=== PATIENT | male | born 1990 | race Caucasian/White ===

== ENCOUNTER 2020-05-26 22:21 | Emergency (ER) | payer OTHER ==
[2020-05-26 22:53] VITALS: BP 126/77
--- NOTE | 2020-05-27 00:07 | ED Physician Documentation ---
History of Present Illness - Stated complaint Stated Complaint: RT KNEE/LEG PX - Chief complaint Chief Complaint: Trauma Ext - History obtained from History obtained from: Patient - Additonal information Additional information: 30-year-old man, previously healthy presents with right knee pain sudden in onset while out fishing with a friend. Patient stepped on the knee in an awkward way while on a floating dock and felt a popping sensation to the medial knee with sudden onset pain at that area, nonradiating, aching, constant, moderate to severe. He was able to weight-bear immediately and is able to weight-bear now. He does feel some instability in the knee. Denies sensory or motor issues. no swelling. Review of Systems Skin: reports: Other (no swelling, no abrasions) Musculoskeletal: reports: Joint pain Neurologic: denies: Focal weakness, Numbness PD PAST MEDICAL HISTORY - Past Medical History Past Medical History: No - Past Surgical History Past Surgical History: Yes Ortho: Other - Present Medications Home Medications: Ambulatory Orders Medication Instructions Recorded Confirmed No Known Home Medications 05/26/20 05/26/20 - Allergies Allergies/Adverse Reactions: Allergies Allergy/AdvReac Type Severity Reaction Status Date / Time No Known Drug Allergies Allergy Verified 05/26/20 23:13 - Social History Does the pt smoke?: No Smoking Status: Never smoker Does the pt drink ETOH?: Yes Does the pt have substance abuse?: No - Immunizations Immunizations are current?: Yes - POLST Patient has POLST: No PD ED PE NORMAL - Vitals Vital signs reviewed: Yes - General General: Alert and oriented X 3, No acute distress, Well developed/nourished - HEENT HEENT: Atraumatic, PERRL, EOMI - Extremities Extremities: No deformity, No tenderness to palpate, Normal ROM s pain, Other (tender with valgus stress. tender with varus stress. negative anterior drawer sign. ) - Neuro Neuro: Alert and oriented X 3, No motor deficit, No sensory deficit, Other (2+ BL DP/PT pulses) Results - Vitals Vitals: Vital Signs - 24 hr 05/26/20 22:49 Temperature 37.0 C Heart Rate 86 Respiratory 18 Rate Blood Pressure 126/77 O2 Saturation 97 Oxygen O2 Source Room air PD MEDICAL DECISION MAKING - ED course ED course: 30-year-old man presents with likely mild ligament strain to right knee. Conservative measures discussed. Strict return precautions given. Knee immobilizer placed. Patient will follow up with Ortho. Departure - Departure Disposition: 01 Home, Self Care Clinical Impression: Knee pain Condition: Good Instructions: ED RICE Follow-Up: Garret Greer MD [Provider Admit Priv/Credential] - Comments: You were seen in the emergency department for knee pain. Your x-ray was normal. You should wear the knee immobilizer until you follow-up with orthopedics in 1 week. Return to the emergency department if you have any worsening symptoms, numbness or weakness in the foot.
--- NOTE | 2020-05-27 07:12 | XRAY Report ---
PROCEDURE: Knee 2 View RT INDICATIONS: Right knee pop at noon, with pain TECHNIQUE: 2 views of the right knee(s) were acquired. COMPARISON: None. FINDINGS: Bones: No fractures or dislocations. No suspicious bony lesions. Soft tissues: No joint effusion. No suspicious soft tissue calcifications. IMPRESSION: No fracture or dislocation. No discrepancy with the preliminary interpretation. Reviewed by: Ade Pineda MD on 05/27/2020 7:11 AM PST Approved by: Ade Pineda MD on 05/27/2020 7:11 AM PST Station ID: [id number]
== END 2020-05-27 00:12 | disposition home or self-care (01) ==
LOC: ED 22:21
DX: M25.561 Pain in right knee (principal)
CPT/HCPCS: 99282; 99283

== ENCOUNTER 2021-03-28 11:10 | Emergency (ER) | payer OTHER ==
[2021-03-28 11:21] VITALS: BP 138/84
--- NOTE | 2021-03-28 11:29 | ED Physician Documentation ---
PD HPI URI - Stated complaint Stated Complaint: SINUS - Chief complaint Chief Complaint: Heent - History obtained from History obtained from: Patient - Additional information Additional information: He returned from [place] few nights ago and on return home developed nasal congestion, and some sore throat. He had body aches and a fever that night but those have gone away. He has been fully vaccinated against Covid with the second maternal may be in June. He was sent here by the for Covid testing. Review of Systems Constitutional: reports: Fever, Chills, Myalgias Nose: reports: Rhinorrhea / runny nose Throat: reports: Sore throat Respiratory: denies: Dyspnea, Cough PD PAST MEDICAL HISTORY - Past Surgical History Past Surgical History: Yes Ortho: Other - Present Medications Home Medications: Ambulatory Orders Medication Instructions Recorded Confirmed No Known Home Medications 05/26/20 03/28/21 - Allergies Allergies/Adverse Reactions: Allergies Allergy/AdvReac Type Severity Reaction Status Date / Time No Known Drug Allergies Allergy Verified 03/28/21 11:21 - Social History Does the pt smoke?: No Smoking Status: Never smoker Does the pt drink ETOH?: Yes Does the pt have substance abuse?: No - Immunizations Immunizations are current?: Yes - POLST Patient has POLST: No PD ED PE NORMAL - Vitals Vital signs reviewed: Yes - General General: Alert and oriented X 3, No acute distress - Neuro Neuro: Alert and oriented X 3, Normal speech - Psych Psych: Normal mood, Normal affect Results - Vitals Vitals: Vital Signs - 24 hr 03/28/21 11:18 Temperature 36.4 C L Heart Rate 80 Respiratory 16 Rate Blood Pressure 138/84 H O2 Saturation 98 Oxygen O2 Source Room air Departure - Departure Disposition: 01 Home, Self Care Clinical Impression: Viral URI Condition: Good Record reviewed to determine appropriate education?: Yes Instructions: ED Viral Syndrome Comments: You have a Covid test pending. You need to self quarantine until the result is done and negative. Do not leave your house. Do not get near anybody. The results should be done in 48 to 72 hours. We will call with a positive result, the fastest way to get a negative result for confirmation though is to go to the hospital website at [email or web address], click on the my [facility] tab and sign up for the patient portal. If any friends or family get sick and would like to have a Covid test done, but do not have signs or symptoms that would necessitate being hospitalized, there are multiple local options for Covid testing. [facility] keeps an updated list of testing and vaccination options at: [email or web address]. Forms: Activity restrictions
== END 2021-03-28 11:40 | disposition home or self-care (01) ==
LOC: ED 11:10
DX: U07.1 COVID-19 (principal); J06.9 Acute upper respiratory infection, unspecified
CPT/HCPCS: 99282; 99283

== ENCOUNTER 2021-05-03 16:43 | Emergency (ER) | payer OTHER ==
--- NOTE | 2021-05-03 18:22 | ED Physician Documentation ---
History of Present Illness - Stated complaint Stated Complaint: NUMB FACE/TINGLY HANDS/RACING HEART - Chief complaint Chief Complaint: Neuro - Additonal information Additional information: 31-year-old male presents to the emergency department for evaluation of generalized numbness tingling of his face and arms. He was at work in the [employer] when he began to feel anxious though for no apparent reason he began to feel somewhat nauseated and had tingling in his arms. He was breathing fast. He spoke to his chief and he walked outside. His chief drove him to the emergency department. In route here with a little rest he reports that he is feeling better he no longer has the numbness or tingling. At no point did he have chest pain. He was not having shortness of air. There is no focal leg weakness unilateral facial droop or slurred speech. Patient reports that he has a lot of stress and trauma in his life recently. He has scheduled an appointment with [employer] medical. He wonders if he was may be having a panic attack. He denies thoughts of harm to himself or others. Review of Systems Constitutional: reports: Reviewed and negative Throat: reports: Reviewed and negative Cardiac: reports: Reviewed and negative Respiratory: reports: Reviewed and negative GI: reports: Reviewed and negative : reports: Reviewed and negative Skin: reports: Reviewed and negative Neurologic: reports: Generalized weakness, Other Psychiatric: reports: Anxiety. denies: Suicidal, Homicidal Endocrine: reports: Reviewed and negative PD PAST MEDICAL HISTORY - Past Surgical History Past Surgical History: Yes Ortho: Other - Present Medications Home Medications: Ambulatory Orders Medication Instructions Recorded Confirmed hydrOXYzine HCL [Hydroxyzine HCl] 25 mg PO TID PRN #20 tablet 05/03/21 - Allergies Allergies/Adverse Reactions: Allergies Allergy/AdvReac Type Severity Reaction Status Date / Time No Known Drug Allergies Allergy Verified 05/03/21 16:57 - Social History Does the pt smoke?: No Smoking Status: Never smoker Does the pt drink ETOH?: Yes Does the pt have substance abuse?: No - Immunizations Immunizations are current?: Yes - POLST Patient has POLST: No PD ED PE NORMAL - General General: Alert and oriented X 3, No acute distress - HEENT HEENT: PERRL - Neck Neck: No adenopathy - Cardiac Cardiac: RRR, No murmur - Respiratory Respiratory: No respiratory distress, Clear bilaterally - Abdomen Abdomen: Normal bowel sounds, Soft - Back Back: No CVA TTP, No spinal TTP - Derm Derm: Normal color Results - Vitals Vitals: Vital Signs - 24 hr 05/03/21 05/03/21 16:53 18:16 Temperature 36.7 C Heart Rate 82 76 Respiratory 16 24 Rate Blood Pressure 149/81 H 126/85 H O2 Saturation 100 99 Oxygen O2 Source Room air - Labs Labs: Laboratory Tests 05/03/21 18:20 Sodium 136 Potassium 3.6 Chloride 100 L Carbon Dioxide 27 Anion Gap 9.0 BUN 16 Creatinine 0.9 Estimated GFR (MDRD) 97 Glucose 84 Calcium 8.8 PD MEDICAL DECISION MAKING - ED course Complexity details: reviewed results, re-evaluated patient, considered differential, d/w patient ED course: 31-year-old male presents emergency department for evaluation of generalized numbness and tingling in his face and arms. This follows the sensation that he thinks he was having a panic attack. He has been dealing with increased anxiety and stress and [place] Screening serum chemistry is without acute findings. On presentation to the emergency department the symptoms had fully abated. He is denying any chest pain or shortness of air. He is PERC negative. We discussed likely etiology of his symptoms but given his age and health history is unlikely that this was a primary cardiac event. Nonfocal neurological exam low suspicion for cerebral infarct. We discussed panic and anxiety can often cause similar symptoms. We will start him on some hydroxyzine. He is to continue to follow behavioral health at [facility]. Emergent return precautions discussed. Departure - Departure Disposition: Home, Self Care Clinical Impression: Panic attack Condition: Stable Record reviewed to determine appropriate education?: Yes Instructions: Anxiety Body Response Prescriptions: hydrOXYzine HCL [Hydroxyzine HCl] 25 mg PO TID PRN #20 tablet PRN Reason: Anxiety Comments: Shun mccann were seen in the ED today for numbness and tingling in your arms and face. As we discussed at the bedside you most likely had a panic attack. Yoru screening labs were normal Please continue to follow up with behavioral health I am [facility] [place] to help with occasional anxiety Return to the ED for chest pain, fainting episodes or any sudden shortness of breath
[2021-05-03 18:33] LABS: CALCIUM 8.8 mg/dL (8.5-10.3); CREATININE 0.9 mg/dL (0.6-1.2); POTASSIUM 3.6 mmol/L (3.5-5.0)
[2021-05-03 19:12] VITALS: BP 122/78
== END 2021-05-03 19:12 | disposition home or self-care (01) ==
LOC: ED 16:43
DX: F41.0 Panic disorder [episodic paroxysmal anxiety] (principal)
CPT/HCPCS: 36415; 80048; 99283

== ENCOUNTER 2023-03-25 19:01 | Emergency (ER) | payer OTHER ==
[2023-03-25] MEDS ORDERED: SODIUM CHLORIDE 0.9% 1,000 ML IV STA (19:09)
[2023-03-25 19:35] LABS: BASOPHILS % (AUTO) 0.2 %; EOSINOPHILS % (AUTO) 0.1 %; HCT - HEMATOCRIT 49.4 % (42.0-52.0); HGB - HEMOGLOBIN 17.4 g/dL (14.0-18.0); LYMPHOCYTES # (AUTO) 0.5 10^3/uL (1.5-3.5); LYMPHOCYTES % (AUTO) 5.2 %; MEAN CORPUSCULAR HEMOGLOBIN 31.1 pg (27.0-31.0); MEAN CORPUSCULAR HGB CONC 35.2 g/dL (32.0-36.0); MEAN CORPUSCULAR VOLUME 88.4 fL (80.0-94.0); MEAN PLATELET VOLUME 8.5 fL (7.4-11.4); MONOCYTES # (AUTO) 0.4 10^3/uL (0.0-1.0); NEUTROPHILS # (AUTO) 9.1 10^3/uL (1.5-6.6); NEUTROPHILS % (AUTO) 90.2 %; PLT - PLATELET COUNT 306 10^3/uL (130-450); RED BLOOD COUNT 5.59 10^6/uL (4.70-6.10); RED CELL DISTRIBUTION WIDTH 11.9 % (12.0-15.0)
[2023-03-25 20:07] LABS: ALBUMIN 4.9 g/dL (3.2-5.5); ALBUMIN/GLOBULIN RATIO 1.9 (1.0-2.2); BILIRUBIN,TOTAL 0.9 mg/dL (0.2-1.0); CALCIUM 9.7 mg/dL (8.5-10.3); CREATININE 0.9 mg/dL (0.6-1.3); POTASSIUM 3.5 mmol/L (3.5-4.5); TOTAL PROTEIN 7.5 g/dL (6.4-8.9)
[2023-03-25] MEDS ORDERED: ONDANSETRON ODT 4 MG Prepack 2 TL PRN (20:11)
--- NOTE | 2023-03-25 20:11 | ED Physician Documentation ---
PD HPI NVD - Stated complaint Stated Complaint: N/V/D - Chief complaint Chief Complaint: Abd Pain - History obtained from History obtained from: Patient - Additonal information Additional information: The patient comes to the emergency department chief complaint of nausea, vomiting, and diarrhea that started earlier today. He states that he was not around anybody that was sick as far as he knows. He has not really had any abdominal pain. No fevers or chills. He states he keeps getting waves of nausea and that every time he tried to eat, it would just come back up. He states that he also did throw up some clear liquids, though this was about 2 hours after taking them in. Right now, he is not having any nausea or other complaints. PD PAST MEDICAL HISTORY - Past Medical History Past Medical History: No Cardiovascular: None Respiratory: None Neuro: None Endocrine/Autoimmune: None GI: None : None HEENT: None Psych: None Musculoskeletal: None Derm: None - Past Surgical History Past Surgical History: Yes Ortho: Other - Present Medications Home Medications: Ambulatory Orders Medication Instructions Recorded Confirmed Ondansetron Odt [Zofran] 4 mg TL Q6H PRN #10 tablet 03/25/23 - Allergies Allergies/Adverse Reactions: Allergies Allergy/AdvReac Type Severity Reaction Status Date / Time No Known Drug Allergies Allergy Verified 03/25/23 19:03 - Social History Does the pt smoke?: No Smoking Status: Never smoker Does the pt drink ETOH?: Yes Does the pt have substance abuse?: No - Immunizations Immunizations are current?: Yes - POLST Patient has POLST: No PD ED PE NORMAL - Vitals Vital signs reviewed: Yes - General General: Alert and oriented X 3, No acute distress, Well developed/nourished - HEENT HEENT: Atraumatic, PERRL, EOMI, Moist mucous membranes - Neck Neck: Supple, no meningeal sign - Cardiac Cardiac: RRR, No murmur - Respiratory Respiratory: No respiratory distress, Clear bilaterally - Abdomen Abdomen: Soft, Non tender, Non distended - Derm Derm: Normal color, Warm and dry, No rash - Extremities Extremities: No deformity, No edema - Neuro Neuro: Alert and oriented X 3 - Psych Psych: Normal mood, Normal affect Results - Vitals Vitals: Vital Signs - 24 hr 03/25/23 03/25/23 19:03 19:53 Temperature 36.8 C Heart Rate 64 107 H Respiratory 16 16 Rate Blood Pressure 140/66 H 122/84 H O2 Saturation 96 97 Oxygen O2 Source Room air - Labs Labs: Laboratory Tests 03/25/23 03/25/23 19:30 19:30 WBC 10.0 RBC 5.59 Hgb 17.4 Hct 49.4 MCV 88.4 MCH 31.1 H MCHC 35.2 RDW 11.9 L Plt Count 306 MPV 8.5 Neut # (Auto) 9.1 H Lymph # (Auto) 0.5 L [place] # (Auto) 0.4 Eos # (Auto) 0.0 Baso # (Auto) 0.0 Absolute Nucleated RBC 0.00 Nucleated RBC % 0.0 Sodium 138 Potassium 3.5 Chloride 103 Carbon Dioxide 20 L Anion Gap 15.0 H BUN 23 H Creatinine 0.9 Estimated GFR (MDRD) 96 Glucose 111 H Calcium 9.7 Total Bilirubin 0.9 AST 14 ALT 28 Alkaline Phosphatase 81 Total Protein 7.5 Albumin 4.9 Globulin 2.6 Albumin/Globulin Ratio 1.9 Lipase 11 PD Medical Decision Making - ED course Complexity details: reviewed results, re-evaluated patient, considered differential, d/w patient ED course: The patient was treated symptomatically in the emergency department with IV fluids and Zofran. He was laboratory studies were unremarkable. I discussed with him that he most likely has one of the many viruses that are going around right now and causing such symptoms. I have prescribed him Zofran and discussed the self-limited nature of this illness with him. We discussed the usual indications for return. Departure - Departure Clinical Impression: Gastroenteritis Condition: Stable Instructions: ED Gastroenteritis Viral Prescriptions: Ondansetron Odt [Zofran] 4 mg TL Q6H PRN #10 tablet PRN Reason: Nausea / Vomiting Comments: Your laboratory studies look good. You most likely have one of the many viral illnesses that are going around at this time and causing such symptoms. Please follow-up with your primary doctor if needed. You have been given a prepack for nausea medicine from the emergency department and a prescription for the same has also been electronically transmitted to the [facility] pharmacy in [place]. You will most likely have symptoms for the next several days. Please do not try to eat anything at all until you have been without vomiting for at least 24 hours. You may take clear liquids and very small amounts at a time, ac ch as a couple of sips, but then wait 20 minutes before taking any more. If you do not vomit during that time, you may take another couple of steps. If you go through several cycles of this without vomiting, then you may gradually increase the frequency of your fluid intake until you can drink clear liquids normally. Please do not try to drinking juice or milk or coffee. You may take caffeine free tea or sports drinks or popsicles if this agrees with you well enough. When she is able to do this for 24 hours, you may try simple starchy foods, such as saltine crackers or Ramen noodles, if you wish. From there, you may advance your diet as tolerated as your stomach feels ready. Forms: PCP List, Activity restrictions
[2023-03-25 20:38] VITALS: BP 125/80; O2SAT 95
== END 2023-03-25 20:42 | disposition home or self-care (01) ==
LOC: ED 19:01
DX: K52.9 Noninfective gastroenteritis and colitis, unspecified (principal)
CPT/HCPCS: 36415; 80053; 83690; 85025; 99283

== ENCOUNTER 2023-10-30 17:08 | Emergency (ER) | payer OTHER ==
--- NOTE | 2023-10-30 17:33 | ED Physician Documentation ---
PD HPI LOWER EXT INJURY - Stated complaint Stated Complaint: R FOOT INFECTION - Chief complaint Chief Complaint: Ext Problem - History obtained from History obtained from: Patient - Additional information Additional information: 33-year-old gentleman had a bunionectomy a month ago at [facility] and was doing well postop. Over the last couple of days has had redness and some drainage from the suture line. No fevers or chills or increased pain now. PD PAST MEDICAL HISTORY - Past Medical History Past Medical History: No Cardiovascular: None Respiratory: None Neuro: None Endocrine/Autoimmune: None GI: None : None HEENT: None Psych: None Musculoskeletal: None Derm: None - Past Surgical History Past Surgical History: Yes Ortho: Other - Present Medications Home Medications: Ambulatory Orders Medication Instructions Recorded Confirmed Ondansetron Odt [Zofran] 4 mg TL Q6H PRN #10 tablet 03/25/23 cephALEXin [Keflex] 500 mg PO Q6H #28 cap 10/30/23 - Allergies Allergies/Adverse Reactions: Allergies Allergy/AdvReac Type Severity Reaction Status Date / Time No Known Drug Allergies Allergy Verified 10/30/23 17:18 - Social History Does the pt smoke?: No Smoking Status: Never smoker Does the pt drink ETOH?: Yes Does the pt have substance abuse?: No - Immunizations Immunizations are current?: Yes - POLST Patient has POLST: No PD ED PE NORMAL - Vitals Vital signs reviewed: Yes - General General: Alert and oriented X 3, No acute distress - Extremities Extremities: Other (There is an intact suture line over the dorsum of the right foot over the first metatarsal with maybe some mild purulent drainage and minimal cellulitis. It was cultured during exam.) - Neuro Neuro: Alert and oriented X 3 Results - Vitals Vitals: Vital Signs - 24 hr 10/30/23 17:19 Temperature 36.8 C Heart Rate 110 H Respiratory 16 Rate Blood Pressure 142/83 H O2 Saturation 98 Oxygen O2 Source Room air - Labs Labs: Microbiology 10/30/23 17:30 Wound Culture - Preliminary Foot - Right PD Medical Decision Making - ED course ED course: He presents with mild purulent drainage with minimal cellulitis of his suture line. It was cultured and he was started on Keflex and advised to follow-up with his surgeon EDNA. Departure - Departure Disposition: 01 Home, Self Care Clinical Impression: Cellulitis Condition: Good Record reviewed to determine appropriate education?: Yes Instructions: Cellulitis Dc Prescriptions: cephALEXin [Keflex] 500 mg PO Q6H #28 cap Comments: I sent your prescription electronically to the [facility] in [place]. We are performing a wound culture, the results should be done in 48-72 hours. If antibiotic change is necessary we will call you. Return if worse in the meantime, especially if you develop increased pain, fevers, cannot keep down the medication. Otherwise follow-up with your physician in approximately 2-3 days. Forms: PCP List Discharge Date/Time: 10/30/23 17:45
[2023-10-30 17:34] VITALS: BP 142/83; O2SAT 98
--- NOTE | 2023-11-01 15:08 | ED Physician Documentation ---
ED Addendum - Addendum Addendum: 11/01/23 15:07 Culture review: He grew MSSA which should be sensitive to Keflex.
== END 2023-10-30 17:45 | disposition home or self-care (01) ==
LOC: ED 17:08
DX: T81.41XA Infection following a procedure, superficial incisional surgical site, initial encounter (principal); L03.031 Cellulitis of right toe; B95.61 Methicillin susceptible Staphylococcus aureus infection as the cause of diseases classified elsewhere; Y83.8 Other surgical procedures as the cause of abnormal reaction of the patient, or of later complication, without mention of misadventure at the time of the procedure
CPT/HCPCS: 87070; 87181; 87205; 99282; 99283